=== PATIENT | female | born 1985 | race Caucasian/White ===

== ENCOUNTER 2019-03-16 01:35 | Emergency (ER) | payer OTHER | END 2019-03-16 05:37 | disposition short-term general hospital (02) | LOC: ED 01:35 ==

== ENCOUNTER 2019-07-25 04:19 | Emergency (ER) | payer MEDICAID, OTHER ==
[2019-07-25] MEDS ORDERED: Zofran 4 MG/2 ML VIAL IV ONE ×2 (05:05→07:53)
[2019-07-25] MEDS ORDERED: Sodium Chloride 0.9% 1000 ML 1,000 ML IV STA ×2 (05:05→07:44)
[2019-07-25] MEDS ORDERED: BENADRYL 50 MG/ML IV ONE (05:05)
[2019-07-25] MEDS ORDERED: SUBLIMAZE 100 MCG/2 ML IV ONE (05:05)
[2019-07-25] MEDS ORDERED: Reglan 10 MG/2 ML IV ONE (05:05)
[2019-07-25 05:30] LABS: Absolute Neutrophil Ct (ANC) 13.45 (1.4-6.9); BASOPHIL % 0.3 % (0.0-0.4); Basophil (Absolute #) 0.04 (0-0.4); Eosinophil % 0.1 % (0.00-5.0); Eosinophil (Absolute #) 0.01 (0-0.5); Hematocrit 36.6 % (35-47); Hemoglobin 11.4 gm/dl (12.0-16.0); Lymphocyte (Absolute #) 1.81 (1.0-4.6); Lymphocytes % 11.4 % (24.0-44.0); Mean Cell Volume 74.7 fl (78-100); Mean Corpuscular Hemoglobin 23.3 pg (26-32); Mean Corpuscular Hgb Concent. 31.1 g/dl (32-36); Mean Platelet Volume 9.1 fl (7.5-11.0); Monocytes % 3.8 % (0.0-12.0); Neutrophil % 84.4 % (36.0-66.0); Platelet Count 502 K/mm3 (150-450); Red Cell Distribution Width 17.6 % (11.5-14.0); White Blood Count 15.9 K/mm3 (4.0-10.5)
[2019-07-25 05:40] LABS: ALBUMIN 4.5 g/dL (3.5-5.0); ALKALINE PHOSPHATASE 87 U/L (38-126); AMYLASE 66 U/L (30-110); ANION GAP 13.5 MEQ/L (5-15); BLOOD UREA NITROGEN 15 mg/dL (7-17); CHLORIDE 104 mmol/L (98-107); Calcium 10.3 mg/dL (8.4-10.2); Carbon Dioxide 27 mmol/L (22-30); Creatinine 1 0.66 mg/dL (0.52-1.04); Glucose 185 mg/dL (74-106); LIPASE 23 U/L (23-300); Potassium 3.9 mmol/L (3.5-5.1); SGOT/AST 20 U/L (14-36); SGPT/ALT 28 U/L (0-35); SODIUM 141 mmol/L (137-145); Total Protein 8.8 g/dL (6.3-8.2)
[2019-07-25] MEDS ORDERED: BENADRYL 50 MG/ML ONE (06:11)
[2019-07-25] MEDS ORDERED: Zofran 4 MG/2 ML VIAL ONE ×2 (06:11→07:55)
[2019-07-25] MEDS ORDERED: Reglan 10 MG/2 ML ONE (06:12)
[2019-07-25] MEDS ORDERED: SUBLIMAZE 100 MCG/2 ML ONE (06:12)
[2019-07-25] MEDS ORDERED: Sodium Chloride 0.9% 1000 ML 1,000 ML ONE ×2 (06:12→07:45)
--- NOTE | 2019-07-25 06:37 | ERPHSYRPT ---
- History of Present Illness Historian: patient Exam Limitations: no limitations Patient Subjective Stated Complaint: pt states she has cyclical vomiting syndrom and has been vomiting and having pain for last 2 days. state sshe is concerned about her potassium levels since she has been having leg cramps Triage Nursing Assessment: pt alert and oriented, asnwers questions approp. pt ambualtory eith steady gait noted. respirations onlabored with lungs cta. abd soft and pt reorts tenderness on upper damian with light palpation. bowel sounds hypo. Timing/Duration: day(s) (2) Activities at Onset: none Quality: cramping, stabbing Abdominal Pain Onset Location: epigastric Pain Radiation: no radiation Severity of Pain-Max: moderate Severity of Pain-Current: moderate Modifying Factors: Improves With: nothing Associated Symptoms: nausea, vomiting Previous symptoms: same symptoms as today Hx Tetanus, Diphtheria Vaccination/Date Given: Yes Hx Influenza Vaccination/Date Given: No Hx Pneumococcal Vaccination/Date Given: No Immunizations Up to Date: Yes <DEVENDRA CASTANEDA - Last Filed: 07/25/19 06:54> <ELISA STEVE - Last Filed: 07/25/19 09:20> - History of Present Illness Time Seen by Provider: 07/25/19 04:55 Physician History: [id number] white female cyclical vomiting syndrome presents with a recurrence. She also complains of upper abdominal pain primarily in the epigastrium for 2 days. She's been using Phenergan at home but it has been of no help. (DEVENDRA CASTANEDA) Allergies/Adverse Reactions: cyclobenzaprine [From Flexeril] Allergy (Verified 07/25/19 04:48) Home Medications: Buspirone HCl [Buspar] 10 mg PO HS 07/25/19 [History] Ondansetron ODT 4 MG [Zofran Odt 4 mg] 4 mg PO UD 07/25/19 [History] PANTOPRAZOLE 40 mg Tablet [Protonix 40MG Tablet] 40 mg PO QAM 07/25/19 [ History] Prochlorperazine [Compro] 25 mg RC UD PRN 07/25/19 [History] Promethazine HCl 25 mg [Phenergan 25 mg] 25 mg PO UD PRN 07/25/19 [History ] - Review of Systems Constitutional: No Fever, No Chills Eyes: No Symptoms Ears, Nose, & Throat: No Symptoms Respiratory: No Cough, No Dyspnea Cardiac: No Chest Pain, No Edema, No Syncope Abdominal/Gastrointestinal: Abdominal Pain, Nausea, Vomiting, No Diarrhea Genitourinary Symptoms: No Dysuria Musculoskeletal: No Back Pain, No Neck Pain Skin: No Rash Neurological: No Dizziness, No Focal Weakness, No Sensory Changes Psychological: No Symptoms Endocrine: No Symptoms All Other Systems: Reviewed and Negative <DEVENDRA CASTANEDA Filed: 07/25/19 06:54> - Past Medical History Pertinent Past Medical History: Yes Neurological History: No Pertinent History ENT History: No Pertinent History Cardiac History: No Pertinent History Respiratory History: No Pertinent History Endocrine Medical History: No Pertinent History Musculoskeletal History: No Pertinent History GI Medical History: No Pertinent History History: No Pertinent History Psycho-Social History: No Pertinent History Female Reproductive Disorders: No Pertinent History Other Medical History: Chronic cyclic vomiting syndrome - Past Surgical History Past Surgical History: Yes Neuro Surgical History: No Pertinent History Cardiac: No Pertinent History Respiratory: No Pertinent History Gastrointestinal: Cholecystectomy Genitourinary: No Pertinent History Musculoskeletal: No Pertinent History Female Surgical History: No Pertinent History Other Surgical History: tonsillar abscesss drained,. uterine ablation and tubes removed on june 25, 2019 - Social History Smoking Status: Current every day smoker How long have you smoked: 18years Exposure to second hand smoke: Yes Drug Use: marijuana Patient Lives Alone: No - Female History Hx Last Menstrual Period: ablation Hx Now: No <DEVENDRA CASTANEDA Filed: 07/25/19 06:54> - Physical Exam General Appearance: no apparent distress, mild distress, alert Eye Exam: PERRL/EOMI, eyes nml inspection Ears, Nose, Throat Exam: normal ENT inspection, pharynx normal, moist mucous membranes Neck Exam: normal inspection, non-tender, supple, full range of motion Respiratory Exam: normal breath sounds, lungs clear, No respiratory distress Cardiovascular Exam: regular rate/rhythm, normal heart sounds Gastrointestinal/Abdomen Exam: normal bowel sounds, tenderness, No mass, No guarding, No rebound Pelvic Exam: not done Rectal Exam: deferred Back Exam: normal inspection, normal range of motion, No CVA tenderness, No vertebral tenderness Extremity Exam: normal inspection, normal range of motion, pelvis stable Neurologic Exam: alert, oriented x 3, cooperative, normal mood/affect, nml cerebellar function, sensation nml, No motor deficits Skin Exam: normal color, warm, dry SpO2: 97 <DEVENDRA CASTANEDA - Last Filed: 07/25/19 06:54> - Nursing Vital Signs Nursing Vital Signs: Initial Vital Signs Temperature 98.1 F 07/25/19 04:38 Pulse Rate 91 H 07/25/19 04:38 Respiratory Rate 18 07/25/19 04:38 Blood Pressure 158/109 07/25/19 04:38 O2 Sat by Pulse Oximetry 97 07/25/19 04:38 Pain Scale Pain Intensity 8 - Course Nursing assessment & vital signs reviewed: Yes - Radiology Exams Abdomen X-ray Interpretation: Interpreted by me, Negative (oon the decubiti ulcers a chest x-ray shows no acute process on abdominal films there is a nonspecific bowel gas pattern with no sign of obstruction or free air. ) <MELONYMARIDEVENDRA - Last Filed: 07/25/19 06:54> Ordered Tests: Active Orders 24 hr Category Date Time Status IV Insertion STAT Care 07/25/19 05:05 Active OBSTR/ACUTE ABDOMEN SERIES Stat Exams 07/25/19 05:05 Completed AMYLASE Stat Lab 07/25/19 05:28 Completed CBC W DIFF Stat Lab 07/25/19 05:28 Completed CMP Stat Lab 07/25/19 05:28 Completed CULTURE,URINE Stat Lab 07/25/19 08:00 Received HCG QUALITATIVE,SERUM Stat Lab 07/25/19 05:28 Completed LIPASE Stat Lab 07/25/19 05:28 Completed Lactic Acid Stat Lab 07/25/19 05:28 Completed UA W/RFX UR CULTURE Stat Lab 07/25/19 08:00 Completed Urine Triage Profile Stat Lab 07/25/19 08:00 Completed Medication Summary Discontinued Medications Generic Name Dose Route Start Last Admin Trade Name Freq PRN Reason Stop Dose Admin Ceftriaxone Sodium 1,000 mg 07/25/19 09:08 Rocephin 1000 Mg Inj IM 07/25/19 09:09 STAT ONE Diphenhydramine HCl 25 mg 07/25/19 05:05 07/25/19 06:24 Benadryl 50 Mg/Ml IV 07/25/19 05:06 25 mg STAT ONE Administration Diphenhydramine HCl Confirm 07/25/19 06:11 Benadryl 50 Mg/Ml Administered 07/25/19 06:12 Dose 50 mg .ROUTE .STK-MED ONE Droperidol 1.25 mg 07/25/19 08:33 07/25/19 08:51 Inapsine 5 Mg/2 Ml IV 07/25/19 08:34 1.25 mg STAT ONE Administration Droperidol Confirm 07/25/19 08:45 Inapsine 5 Mg/2 Ml Administered 07/25/19 08:46 Dose 5 mg .ROUTE .STK-MED ONE Fentanyl Citrate 50 mcg 07/25/19 05:05 07/25/19 06:18 Sublimaze 100 Mcg/2 Ml IV 07/25/19 05:06 50 mcg STAT ONE Administration Fentanyl Citrate Confirm 07/25/19 06:12 Sublimaze 100 Mcg/2 Ml Administered 07/25/19 06:13 Dose 100 mcg .ROUTE .STK-MED ONE Sodium Chloride 1,000 mls @ 999 mls/hr 07/25/19 05:05 07/25/19 07:31 Sodium Chloride 0.9% 1000 Ml IV 07/25/19 06:05 Infused .Q1H1M STA Infusion Sodium Chloride Confirm 07/25/19 06:12 Sodium Chloride 0.9% 1000 Ml Administered 07/25/19 06:13 Dose 1,000 mls @ ud .ROUTE .STK-MED ONE Sodium Chloride 1,000 mls @ 999 mls/hr 07/25/19 07:44 07/25/19 08:57 Sodium Chloride 0.9% 1000 Ml IV 07/25/19 08:44 0 mls/hr .Q1H1M STA Infusion Sodium Chloride Confirm 07/25/19 07:45 Sodium Chloride 0.9% 1000 Ml Administered 07/25/19 07:46 Dose 1,000 mls @ ud .ROUTE .STK-MED ONE Metoclopramide HCl 10 mg 07/25/19 05:05 07/25/19 06:19 Reglan 10 Mg/2 Ml IV 07/25/19 05:06 10 mg STAT ONE Administration Metoclopramide HCl Confirm 07/25/19 06:12 Reglan 10 Mg/2 Ml Administered 07/25/19 06:13 Dose 10 mg .ROUTE .STK-MED ONE Nalbuphine HCl 5 mg 07/25/19 08:33 07/25/19 08:50 Nalbuphine Hcl 10 Mg/1 Ml Injection IV 07/25/19 08:34 5 mg STAT ONE Administration Nalbuphine HCl Confirm 07/25/19 08:46 Nubain 10 Mg/Ml Administered 07/25/19 08:47 Dose 10 mg .ROUTE .STK-MED ONE Nalbuphine HCl Confirm 07/25/19 08:47 Nubain 10 Mg/Ml Administered 07/25/19 08:48 Dose 10 mg .ROUTE .STK-MED ONE Ondansetron HCl 4 mg 07/25/19 05:05 07/25/19 06:17 Zofran 4 Mg/2 Ml Vial IV 07/25/19 05:06 4 mg STAT ONE Administration Ondansetron HCl Confirm 07/25/19 06:11 Zofran 4 Mg/2 Ml Vial Administered 07/25/19 06:12 Dose 4 mg .ROUTE .STK-MED ONE Ondansetron HCl 4 mg 07/25/19 07:53 07/25/19 07:56 Zofran 4 Mg/2 Ml Vial IV 07/25/19 07:54 4 mg STAT ONE Administration Ondansetron HCl Confirm 07/25/19 07:55 Zofran 4 Mg/2 Ml Vial Administered 07/25/19 07:56 Dose 4 mg .ROUTE .STK-MED ONE Lab/Rad Data: Laboratory Result Diagrams 07/25/19 05:28 07/25/19 05:28 Laboratory Results 07/25/19 07/25/19 07/25/19 Range/Units Unknown 08:00 08:00 WBC (4.0-10.5) K/mm3 RBC (4.1-5.4) M/mm3 Hgb (12.0-16.0) gm/dl Hct (35-47) % MCV (78-100) fl MCH (26-32) pg MCHC (32-36) g/dl RDW (11.5-14.0) % Plt Count (150-450) K/mm3 MPV (7.5-11.0) fl Gran % (36.0-66.0) % Eos # (Auto) (0-0.5) Absolute Lymphs (auto) (1.0-4.6) Absolute Monos (auto) (0.0-1.3) Lymphocytes % (24.0-44.0) % Monocytes % (0.0-12.0) % Eosinophils % (0.00-5.0) % Basophils % (0.0-0.4) % Absolute Granulocytes (1.4-6.9) Basophils # (0-0.4) Sodium (137-145) mmol/L Potassium (3.5-5.1) mmol/L Chloride (98-107) mmol/L Carbon Dioxide (22-30) mmol/L Anion Gap (5-15) MEQ/L BUN (7-17) mg/dL Creatinine (0.52-1.04) mg/dL Estimated GFR ML/MIN Glucose (74-106) mg/dL Hemoglobin A1c 5.98 (4.5-6.0) % Lactic Acid (0.4-2.0) Calcium (8.4-10.2) mg/dL Total Bilirubin (0.2-1.3) mg/dL AST (14-36) U/L ALT (0-35) U/L Alkaline Phosphatase (38-126) U/L Serum Total Protein (6.3-8.2) g/dL Albumin (3.5-5.0) g/dL Amylase (30-110) U/L Lipase (23-300) U/L Serum , Qual (Negative) Urine Color YELLOW (YELLOW) Urine Appearance CLOUDY (CLEAR) Urine pH 7.0 (5-6) Ur Specific [place] 1.024 (1.005-1.025) Urine Protein 30 (Negative) Urine Ketones NEGATIVE (NEGATIVE) Urine Blood NEGATIVE (0-5) Sammy/ul Urine Nitrite NEGATIVE (NEGATIVE) Urine Bilirubin NEGATIVE (NEGATIVE) Urine Urobilinogen NORMAL (0-1) mg/dL Ur Leukocyte Esterase NEGATIVE (NEGATIVE) Urine WBC (Auto) 6-10 (0-5) /HPF Urine RBC (Auto) 11-15 (0-2) /HPF U Epithel Cells (Auto) MODERATE (FEW) /HPF Urine Bacteria (Auto) FEW (NEGATIVE) /HPF Urine Mucus (Auto) MANY (NEGATIVE) /HPF Urine Culture Reflexed YES (NO) Urine Glucose NEGATIVE (NEGATIVE) mg/dL Urine Opiates Level POSITIVE (NEGATIVE) Ur Methadone NEGATIVE (NEGATIVE) Urine Barbiturates NEGATIVE (NEGATIVE) Ur Phencyclidine (PCP) NEGATIVE (NEGATIVE) Urine Amphetamine NEGATIVE (NEGATIVE) U Benzodiazepine Level POSITIVE (NEGATIVE) Urine Cocaine NEGATIVE (NEGATIVE) Urine Marijuana (THC) POSITIVE (NEGATIVE) 07/25/19 07/25/19 07/25/19 Range/Units 05:28 05:28 05:28 WBC (4.0-10.5) K/mm3 RBC (4.1-5.4) M/mm3 Hgb (12.0-16.0) gm/dl Hct (35-47) % MCV (78-100) fl MCH (26-32) pg MCHC (32-36) g/dl RDW (11.5-14.0) % Plt Count (150-450) K/mm3 MPV (7.5-11.0) fl Gran % (36.0-66.0) % Eos # (Auto) (0-0.5) Absolute Lymphs (auto) (1.0-4.6) Absolute Monos (auto) (0.0-1.3) Lymphocytes % (24.0-44.0) % Monocytes % (0.0-12.0) % Eosinophils % (0.00-5.0) % Basophils % (0.0-0.4) % Absolute Granulocytes (1.4-6.9) Basophils # (0-0.4) Sodium 141 (137-145) mmol/L Potassium 3.9 (3.5-5.1) mmol/L Chloride 104 (98-107) mmol/L Carbon Dioxide 27 (22-30) mmol/L Anion Gap 13.5 (5-15) MEQ/L BUN 15 (7-17) mg/dL Creatinine 0.66 (0.52-1.04) mg/dL Estimated GFR > 60.0 ML/MIN Glucose 185 H (74-106) mg/dL Hemoglobin A1c (4.5-6.0) % Lactic Acid 1.1 (0.4-2.0) Calcium 10.3 H (8.4-10.2) mg/dL Total Bilirubin 0.40 (0.2-1.3) mg/dL AST 20 (14-36) U/L ALT 28 (0-35) U/L Alkaline Phosphatase 87 (38-126) U/L Serum Total Protein 8.8 H (6.3-8.2) g/dL Albumin 4.5 (3.5-5.0) g/dL Amylase 66 (30-110) U/L Lipase 23 (23-300) U/L Serum , Qual NEGATIVE (Negative) Urine Color (YELLOW) Urine Appearance (CLEAR) Urine pH (5-6) Ur Specific Seminary (1.005-1.025) Urine Protein (Negative) Urine Ketones (NEGATIVE) Urine Blood (0-5) Sammy/ul Urine Nitrite (NEGATIVE) Urine Bilirubin (NEGATIVE) Urine Urobilinogen (0-1) mg/dL Ur Leukocyte Esterase (NEGATIVE) Urine WBC (Auto) (0-5) /HPF Urine RBC (Auto) (0-2) /HPF U Epithel Cells (Auto) (FEW) /HPF Urine Bacteria (Auto) (NEGATIVE) /HPF Urine Mucus (Auto) (NEGATIVE) /HPF Urine Culture Reflexed (NO) Urine Glucose (NEGATIVE) mg/dL Urine Opiates Level (NEGATIVE) Ur Methadone (NEGATIVE) Urine Barbiturates (NEGATIVE) Ur Phencyclidine (PCP) (NEGATIVE) Urine Amphetamine (NEGATIVE) U Benzodiazepine Level (NEGATIVE) Urine Cocaine (NEGATIVE) Urine Marijuana (THC) (NEGATIVE) 07/25/19 Range/Units 05:28 WBC 15.9 H (4.0-10.5) K/mm3 RBC 4.90 (4.1-5.4) M/mm3 Hgb 11.4 L (12.0-16.0) gm/dl Hct 36.6 (35-47) % MCV 74.7 L (78-100) fl MCH 23.3 L (26-32) pg MCHC 31.1 L (32-36) g/dl RDW 17.6 H (11.5-14.0) % Plt Count 502 H (150-450) K/mm3 MPV 9.1 (7.5-11.0) fl Gran % 84.4 H (36.0-66.0) % Eos # (Auto) 0.01 (0-0.5) Absolute Lymphs (auto) 1.81 (1.0-4.6) Absolute Monos (auto) 0.60 (0.0-1.3) Lymphocytes % 11.4 L (24.0-44.0) % Monocytes % 3.8 (0.0-12.0) % Eosinophils % 0.1 (0.00-5.0) % Basophils % 0.3 (0.0-0.4) % Absolute Granulocytes 13.45 H (1.4-6.9) Basophils # 0.04 (0-0.4) Sodium (137-145) mmol/L Potassium (3.5-5.1) mmol/L Chloride (98-107) mmol/L Carbon Dioxide (22-30) mmol/L Anion Gap (5-15) MEQ/L BUN (7-17) mg/dL Creatinine (0.52-1.04) mg/dL Estimated GFR ML/MIN Glucose (74-106) mg/dL Hemoglobin A1c (4.5-6.0) % Lactic Acid (0.4-2.0) Calcium (8.4-10.2) mg/dL Total Bilirubin (0.2-1.3) mg/dL AST (14-36) U/L ALT (0-35) U/L Alkaline Phosphatase (38-126) U/L Serum Total Protein (6.3-8.2) g/dL Albumin (3.5-5.0) g/dL Amylase (30-110) U/L Lipase (23-300) U/L Serum , Qual (Negative) Urine Color (YELLOW) Urine Appearance (CLEAR) Urine pH (5-6) Ur Specific Sem[place] (1.005-1.025) Urine Protein (Negative) Urine Ketones (NEGATIVE) Urine Blood (0-5) Sammy/ul Urine Nitrite (NEGATIVE) Urine Bilirubin (NEGATIVE) Urine Urobilinogen (0-1) mg/dL Ur Leukocyte Esterase (NEGATIVE) Urine WBC (Auto) (0-5) /HPF Urine RBC (Auto) (0-2) /HPF U Epithel Cells (Auto) (FEW) /HPF Urine Bacteria (Auto) (NEGATIVE) /HPF Urine Mucus (Auto) (NEGATIVE) /HPF Urine Culture Reflexed (NO) Urine Glucose (NEGATIVE) mg/dL Urine Opiates Level (NEGATIVE) Ur Methadone (NEGATIVE) Urine Barbiturates (NEGATIVE) Ur Phencyclidine (PCP) (NEGATIVE) Urine Amphetamine (NEGATIVE) U Benzodiazepine Level (NEGATIVE) Urine Cocaine (NEGATIVE) Urine Marijuana (THC) (NEGATIVE) - Progress Progress: improved, pain not gone completely Counseled pt/family regarding: lab results, diagnosis, need for follow-up, rad results <ELISA STEVE - Last Filed: 07/25/19 09:20> <DEVENDRA CASTANEDA - Last Filed: 07/25/19 06:54> - Departure Departure Disposition: Home Critical Care Time: Yes Critical Care Time(excluding separately billable procedures): Critical 30-74 mins <JOHN STEVEYESH - Last Filed: 07/25/19 09:20> - Departure Clinical Impression: Cyclic vomiting syndrome, Pre-diabetes UTI (urinary tract infection) Qualifiers: Urinary tract infection type: acute cystitis Hematuria presence: without hematuria Qualified Code(s): N30.00 - Acute cystitis without hematuria Condition: Stable Referrals: Provider,Unknown [Primary Care Provider] - Instructions: Vomiting -- Adult, Urinary Tract Infection, Adult (DC) Additional Instructions: Discharge/Care Plan MARIPOSA BROWNGENEVA was seen on 07/25/19 in the Emergency Room. The patient was counseled regarding Diagnosis,Lab results, Imaging studies, need for follow up and when to return to the Emergency Room. Prescriptions given: Discharge Note I have spoken with the patient and/or caregivers. I have explained the patient' s condition, diagnosis and treatment plan based on the information available to me at this time. I have answered the patient's and/or caregiver's questions and addressed any concerns. The patient and/or caregivers have as good understanding of the patient's diagnosis, condition and treatment plan as can be expected at this point. The vital signs have been stable. The patient's condition is stable and appropriate for discharge from the emergency department. The patient will pursue further outpatient evaluation with the primary care physician or other designated or consulting physician as outlined in the discharge instructions. The patient and/or caregivers are agreeable to this plan of care and follow-up instructions have been explained in detail. The patient and/or caregivers have received these instruction. The patient/and or caregivers are aware that any significant change in condition or worsening of symptoms should prompt an immediate return to this or the closest emergency department or call 911. PUNEET BROWN was seen on 07/25/19 n the Emergency Room. At that time you were treated for an emergent condition, during your visit Laboratory, Radiology and/ or other procedures may have been ordered. It is very important that you follow- up with your Primary Care Physician Unknown Provider within the next 24-48 hours to review your Emergency Room visit and the final results of testing that was ordered. Some test results such as Urine Cultures, Blood Cultures, and other cultures if ordered will not be finalized for 24-48 hours. If you do not have a Primary Care Provider please call the medical records department at [phone] ext [phone] to obtain a copy of your results or you may sign into our patient portal to obtain these results by visiting us @ [email or web address] and completing the following steps: 1. Click on the Patient Portal link 2. Click the Patient Self Enrollment Link to complete the enrollment form and entering your 3. Once the enrollment form is completed you will receive an email with a temporary ID and password at the email address you provided. 4. Next choose a user name and password. Your user name must be at least 4 characters long and your password must be at least 4 characters long. 5. Choose a security question from the list and provide your answer to the question. If you already have signed into the Health Portal you may access your Health Care Information 11/02 by the following steps: 1. Login to our website @ [email or web address] 2. Enter your original user name and password. FAQS The [facility] Portal is an online tool that contains your Lab Results, Radiology Reports, Visit History, Discharge Instructions and Health Summary Lab and Radiology Results will not be available for 72 hours on the portal. The Portal is a secure site, passwords are encryted and URLs are re-written so they cannot be copied and pasted. You and authorized family members are the only ones who can access your Portal. Also there is a timeout feature that protects your information if you leave the Portal page open. If you have technical difficulty please use the Contact Us link on the page this will allow you to submit any questions you have regarding the Portal or you may contact the Medical Record Department at [phone]. Prescriptions: Ciprofloxacin [Cipro 500 MG] 500 mg PO BIDAC #14 tablet
--- NOTE | 2019-07-25 07:49 | XRAY ---
Indication: Abdomen pain, nausea, and vomiting. Cyclical vomiting syndrome. Comparison: None 2 views of the abdomen nonacute and nonobstructed with minimal scattered colonic fecal debris and cholecystectomy clips. Remaining solid organs and osseous structures unremarkable. Single PA chest demonstrates normal heart, lungs, and bony thorax. Impression: Negative abdomen. Normal 1 view chest.
[2019-07-25] MEDS ORDERED: NALBUPHINE HCL 10 MG/1 ML INJECTION IV ONE (08:33)
[2019-07-25] MEDS ORDERED: Inapsine 5 MG/2 ML IV ONE (08:33)
[2019-07-25] MEDS ORDERED: Inapsine 5 MG/2 ML ONE (08:45)
[2019-07-25] MEDS ORDERED: Nubain 10 MG/ML ONE ×2 (08:46→08:47)
[2019-07-25 09:00] LABS: Appearance CLOUDY (CLEAR); Bilirubin NEGATIVE (NEGATIVE); Blood NEGATIVE Ery/ul (0-5); Glucose NEGATIVE (NEGATIVE); Ketones NEGATIVE (NEGATIVE); Leukocyte Esterase NEGATIVE (NEGATIVE); Nitrite NEGATIVE (NEGATIVE); Protein,Urine Dip 30 (Negative); Specific Gravity 1.024 (1.005-1.025); Urobilinogen NORMAL mg/dL (0-1)
[2019-07-25 09:01] LABS: Bacteria FEW /HPF (NEGATIVE); Epithelial Cells MODERATE /HPF (FEW); Mucus MANY /HPF (NEGATIVE)
[2019-07-25 09:05] LABS: Amphetamine,Urine NEGATIVE (NEGATIVE); Barbiturate,Urine NEGATIVE (NEGATIVE); Benzodiazepine,Urine POSITIVE (NEGATIVE); Cocaine,Urine NEGATIVE (NEGATIVE); Methadone,Urine NEGATIVE (NEGATIVE); Opiate,Urine POSITIVE (NEGATIVE); PCP,Urine NEGATIVE (NEGATIVE); THC,Urine POSITIVE (NEGATIVE)
[2019-07-25] MEDS ORDERED: Rocephin 1000 MG INJ IM ONE (09:08)
[2019-07-25] MEDS ORDERED: Rocephin 1000 MG INJ ONE (09:20)
[2019-07-25 09:34] VITALS: BP 143/80; PULSE 70; O2SAT 99
== END 2019-07-25 09:36 | disposition home or self-care (01) ==
LOC: ED 04:19
DX: R11.15 Cyclical vomiting syndrome unrelated to migraine (principal); R73.03 Prediabetes; N30.00 Acute cystitis without hematuria
CPT/HCPCS: 36000; 36415; 74022; 80053; 80307; 81001; 81025; 82150; 83036; 83605; 83690; 85025; 87077; 87086; 87186; 96360; 96361; 96372; 96374; 96375; 96376; 99285; 99291; J0696; J1200; J2300; J2405; J3010

== ENCOUNTER 2020-10-23 12:20 | Emergency (ER) | payer OTHER ==
[2020-10-23 12:32] VITALS: O2SAT 98
[2020-10-23] MEDS ORDERED: TORAdol 30 mg Injection IM ONE (12:42)
[2020-10-23] MEDS ORDERED: TORAdol 30 mg Injection ONE (12:42)
--- NOTE | 2020-10-23 13:05 | ERPHSYRPT ---
- History of Present Illness Time Seen by Provider: 10/23/20 12:22 Source: patient Exam Limitations: no limitations Patient Subjective Stated Complaint: Pt has decreased range of motion to the right shoulder that has been going on for approx 1.5 weeks, denies any known inj ury Triage Nursing Assessment: Pt brought self to the ER, vitals wnl, rates right shoulder pain as 6/10, denies any known surgery, pain with palpation, no visible deformities, does do heavy lifting with job, pulses normal, doesn't appear to be in any distress Physician History: 35 years old female presented in the ER with chief complaint of right shoulder pain for the last 10 days, sharp nature moderate intensity, aggravated with movements more on the upper lateral aspect of right shoulder, aggravated with movements and limiting range of motion without any weakness in the right upper extremity. Denies any neck pain. Denies any fall trauma pulling or pushing heavy objects. Occurred: days ago (10) Quality: sharpness Severity of Pain-Max: moderate Severity of Pain-Current: moderate Extremities Pain Location: shoulder: right Modifying Factors: Improves With: immobilization, rest. Worsens With: movement Associated Symptoms: none Allergies/Adverse Reactions: cyclobenzaprine [From Flexeril] Allergy (Verified 10/23/20 12:32) Home Medications: Buspirone HCl [Buspar] 10 mg PO HS 07/25/19 [History] Ondansetron ODT 4 MG [Zofran Odt 4 mg] 4 mg PO UD 07/25/19 [History] PANTOPRAZOLE 40 mg Tablet [Protonix 40MG Tablet] 40 mg PO QAM 07/25/19 [History] Prochlorperazine [Compro] 25 mg RC UD PRN 07/25/19 [History] Promethazine HCl 25 mg [Phenergan 25 mg] 25 mg PO UD PRN 07/25/19 [History] Hx Tetanus, Diphtheria Vaccination/Date Given: Yes Hx Influenza Vaccination/Date Given: No Hx Pneumococcal Vaccination/Date Given: No Travel Risk - International Travel Have you traveled outside of the country in past 3 weeks: No - Coronavirus Screening Are you exhibiting any of the following symptoms?: No Close contact with a COVID-19 positive Pt in past 14-21 Days: No - Vaccine Status Have you recieved a Covid-19 vaccination: No - Review of Systems Constitutional: No Symptoms Eyes: No Symptoms Ears, Nose, & Throat: No Symptoms Respiratory: No Symptoms Cardiac: No Symptoms Abdominal/Gastrointestinal: No Symptoms Genitourinary Symptoms: No Symptoms Musculoskeletal: Arthralgias, Joint Pain Skin: No Symptoms Neurological: No Symptoms Psychological: No Symptoms Endocrine: No Symptoms Hematologic/Lymphatic: No Symptoms - Past Medical History Pertinent Past Medical History: Yes Neurological History: No Pertinent History ENT History: No Pertinent History Cardiac History: No Pertinent History Respiratory History: No Pertinent History Endocrine Medical History: No Pertinent History Musculoskeletal History: No Pertinent History GI Medical History: No Pertinent History History: No Pertinent History Psycho-Social History: No Pertinent History Female Reproductive Disorders: No Pertinent History Other Medical History: Chronic cyclic vomiting syndrome - Past Surgical History Past Surgical History: Yes Neuro Surgical History: No Pertinent History Cardiac: No Pertinent History Respiratory: No Pertinent History Gastrointestinal: Cholecystectomy Genitourinary: No Pertinent History Musculoskeletal: No Pertinent History Female Surgical History: No Pertinent History Other Surgical History: tonsillar abscesss drained,. uterine ablation and tubes removed on june 25, 2019 - Social History Smoking Status: Current every day smoker How long have you smoked: years Exposure to second hand smoke: Yes Drug Use: marijuana Patient Lives Alone: No - Female History Hx Now: No - Nursing Vital Signs Nursing Vital Signs: Initial Vital Signs Temperature 98.6 F 10/23/20 12:23 Pulse Rate 91 H 10/23/20 12:23 Blood Pressure 138/98 10/23/20 12:23 O2 Sat by Pulse Oximetry 98 10/23/20 12:23 Pain Scale Pain Intensity 6 - Physical Exam General Appearance: no apparent distress Neck Exam: normal inspection, non-tender, supple, full range of motion Cardiovascular/Respiratory Exam: normal breath sounds, regular rate/rhythm, No chest non-tender Shoulder Exam: normal inspection, limited ROM (Unable to lift her right shoulder above level of shoulder. Limited range of motion in all direction. Positive empty can and [place]er Pike test.), No deformity, No swelling Elbow/Forearm Exam: normal inspection, non-tender, no evidence of injury, normal ROM Wrist Exam: normal inspection Hand Exam: normal inspection Neuro/Tendon Exam: normal sensation, normal motor functions Mental Status Exam: alert, oriented x 3, cooperative Skin Exam: normal color SpO2 Interpretation: normal SpO2: 98 O2 Delivery: Room Air Ordered Tests: Active Orders 24 hr Category Date Time Status SHOULDER Stat Exams 10/23/20 12:42 Ordered Medication Summary Discontinued Medications Generic Name Dose Route Start Last Admin Trade Name Deidre PRN Reason Stop Dose Admin Ketorolac Tromethamine 30 mg 10/23/20 12:42 10/23/20 12:45 Toradol 30 Mg Injection IM 10/23/20 12:43 30 mg STAT ONE Administration Ketorolac Tromethamine Confirm 10/23/20 12:42 Toradol 30 Mg Injection Administered 10/23/20 12:43 Dose 30 mg .ROUTE .STK-MED ONE - Progress Progress: pain not gone completely Progress Note: 10/23/20 13:03 She is given Toradol for symptomatic relief. X-rays ruled out any fracture dislocation. I believe patient has ligamentous injury, recommended NSAIDs and outpatient follow-up with primary care/Ortho clinic for further evaluation and may need MRI for rotator cuff tear. Discussed signs symptoms of worsening needing return to ER which he seems understanding. Counseled pt/family regarding: diagnosis, need for follow-up, rad results - Departure Departure Disposition: Home Clinical Impression: Acute pain of right shoulder Condition: Stable Critical Care Time: No Referrals: Provider,Unknown [Primary Care Provider] - Instructions: Shoulder Sprain (DC), Shoulder Tendinopathy (DC) Additional Instructions: Take Tylenol/ibuprofen as needed. Avoid exertional activities. Follow-up with Ortho clinic for reevaluation. Return to ER for any worsening. Prescriptions: Ibuprofen 600 mg PO Q6HPRN PRN 10 Days #20 tablet PRN Reason: Pain
[2020-10-23 13:29] VITALS: BP 143/95
[2020-10-23 13:43] VITALS: PULSE 80
--- NOTE | 2020-10-23 19:32 | XRAY ---
Indication: Pain. No known injury. Comparison: None 3 view right shoulder obtained. No bony, articular, or soft tissue abnormalities.
== END 2020-10-23 13:43 | disposition home or self-care (01) ==
LOC: ED 12:20
DX: M25.511 Pain in right shoulder (principal)
CPT/HCPCS: 73030; 96372; 99284; J1885